=== PATIENT | female | born 1955 ===

== ENCOUNTER 2024-04-20 10:57 | Outpatient (REF) | payer MEDICARE, MEDICAID, SELFPAY | END 2024-04-20 10:58 | disposition home or self-care (01) | LOC: HO.SH 10:57 | PROVIDERS: Visit Provider Physician Assistant | DX: Z01.118 Encounter for examination of ears and hearing with other abnormal findings (principal); H90.0 Conductive hearing loss, bilateral | CPT/HCPCS: 92553; 92555; 92567 ==